=== PATIENT | female | born 1985 | race Caucasian/White ===

== ENCOUNTER 2022-05-16 07:57 | Outpatient (CLI) | payer OTHER, SELFPAY | END 2022-05-16 07:58 | disposition home or self-care (01) | PROVIDERS: Visit Provider Obstetrics & Gynecology | DX: Z87.59 Personal history of other complications of pregnancy, childbirth and the puerperium (principal) | CPT/HCPCS: 84702 ==

== ENCOUNTER 2022-05-18 14:38 | Outpatient (CLI) | payer OTHER, SELFPAY | END 2022-05-18 14:39 | disposition home or self-care (01) | PROVIDERS: Visit Provider Obstetrics & Gynecology | DX: O09.299 Supervision of pregnancy with other poor reproductive or obstetric history, unspecified trimester (principal) | CPT/HCPCS: 84702 ==

== ENCOUNTER 2022-05-21 16:33 | Outpatient (CLI) | payer OTHER, SELFPAY | END 2022-05-21 16:34 | disposition home or self-care (01) | PROVIDERS: Visit Provider Obstetrics & Gynecology | DX: Z87.59 Personal history of other complications of pregnancy, childbirth and the puerperium (principal) | CPT/HCPCS: 84702 ==

== ENCOUNTER 2022-06-22 12:11 | Outpatient (CLI) | payer OTHER, SELFPAY ==
--- NOTE | 2022-06-22 12:15 | CRLHL7_ITS ---
For Patients: As a result of the Century Cures Act, medical imaging exams and procedure reports are released immediately into your electronic medical record. You may view this report before your referring provider. If you have questions, please contact your health care provider. INDICATION: First trimester scan, establish dates. COMPARISON: None. TECHNIQUE: Real-time lang-scale imaging of the pelvis was performed. FINDINGS: Sonographic imaging demonstrates a single living intrauterine gestation. The embryo demonstrates a regular cardiac rate measuring 169 beats per minute. The embryo`s crown-rump length measurement of 2.8 cm corresponds to a gestational age of 9 weeks 4 days with a sonographic due date of 01/21/2023. Yolk sac is present measuring 5 millimeters. The yolk sac is somewhat ill-defined. There are no gross abnormalities noted within the embryo at this early state of development. The gestational sac has a normal appearance. There is a 13 x 6 x 12 millimeter perigestational hemorrhage. The amount of fluid within the sac appears appropriate for gestational age. The cervix is closed. The myometrium appears normal. The ovaries are of normal size. Simple right ovarian cyst is present measuring 2.3 cm. There are no suspicious fluid collections noted in the cul-de-sac. IMPRESSION: Single living intrauterine with sonographic gestational age 9 weeks 4 days and sonographic due date 01/21/2023. Subchorionic hemorrhage measuring 1.3 x 0.6 x 1.2 cm. Indistinctness of the yolk sac which measures 5 millimeters. Follow-up in 2 weeks suggested. Dictated by Jake Beckford MD @ 06/24/2022 9:32:56 AM (Electronically Signed)
== END 2022-06-22 12:12 | disposition home or self-care (01) ==
LOC: US 12:12
PROVIDERS: Visit Provider Registered Nurse
DX: Z34.91 Encounter for supervision of normal pregnancy, unspecified, first trimester (principal); Z3A.09 9 weeks gestation of pregnancy
CPT/HCPCS: 76817

== ENCOUNTER 2022-06-22 13:20 | Outpatient (CLI) | payer OTHER, SELFPAY ==
[2022-06-22 20:20] LABS: Chlamydia DNA Amplified* NOT DETECTED (No Detected); GC DNA Amplified* NOT DETECTED (No Detected)
== END 2022-06-22 13:21 | disposition home or self-care (01) ==
PROVIDERS: Visit Provider Registered Nurse
DX: Z34.91 Encounter for supervision of normal pregnancy, unspecified, first trimester (principal); O20.9 Hemorrhage in early pregnancy, unspecified; Z3A.09 9 weeks gestation of pregnancy
CPT/HCPCS: 82565; 82570; 84156; 84450; 84460; 84520; 84550; 86592; 86703; 86762; 86787; 86803; 86850; 86900; 86901; 87086; 87340; 87491; 87591

== ENCOUNTER 2022-06-29 09:34 | Outpatient (CLI) | payer OTHER, SELFPAY ==
[2022-06-29 12:59] LABS: Total Protein Urine 9 mg/dL
[2022-06-29 13:03] LABS: Creatinine Urine 69.2 mg/dL
[2022-06-29 14:10] LABS: Collection Time Urine 24 Hours; Total Volume 24 Hour Urine 2600 ml; Urine Creatinine mg/24 Hour 0 mg/Day
== END 2022-06-29 09:35 | disposition home or self-care (01) ==
LOC: FRMREF 09:36
PROVIDERS: Visit Provider Registered Nurse
DX: Z34.90 Encounter for supervision of normal pregnancy, unspecified, unspecified trimester (principal)
CPT/HCPCS: 82570; 84156

== ENCOUNTER 2022-07-06 08:15 | Outpatient (CLI) | payer OTHER, SELFPAY ==
--- NOTE | 2022-07-06 08:15 | CRLHL7_ITS ---
For Patients: As a result of the Cures Act, medical imaging exams and procedure reports are released immediately into your electronic medical record. You may view this report before your referring provider. If you have questions, please contact your health care provider. INDICATION: female. Follow up indistinctness of the yolk sac. TECHNIQUE: Transabdominal obstetrical ultrasound. COMPARISON: June 22, 2022. FINDINGS: Single living intrauterine with a crown-rump length of 5.2 cm corresponding to an 11 week 6 day gestation with a sonographic due date of January 19, 2023. heart rate 168 beats per minute. Posterior placenta. The yolk sac is not seen. Nonvisualization of the ovaries. IMPRESSION: Single living intrauterine with a crown-rump length corresponding to an 11 week 6 day gestation with a sonographic due date of January 19, 2023. heart rate 168 beats per minute. Nonvisualization of the yolk sac. Dictated by Yamil Cheek MD @ 07/06/2022 10:59:40 AM (Electronically Signed)
== END 2022-07-06 08:16 | disposition home or self-care (01) ==
PROVIDERS: Visit Provider Registered Nurse
DX: O41.8X10 Other specified disorders of amniotic fluid and membranes, first trimester, not applicable or unspecified (principal); Z3A.11 11 weeks gestation of pregnancy
CPT/HCPCS: 76801

== ENCOUNTER 2022-08-06 14:58 | Outpatient (CLI) | payer OTHER, SELFPAY | END 2022-08-06 14:59 | disposition home or self-care (01) | LOC: NFLDREF 15:00 | PROVIDERS: Visit Provider Obstetrics & Gynecology | DX: Z34.92 Encounter for supervision of normal pregnancy, unspecified, second trimester (principal); Z3A.16 16 weeks gestation of pregnancy | CPT/HCPCS: 81511 ==

== ENCOUNTER 2022-11-01 09:55 | Outpatient (CLI) | payer OTHER, SELFPAY | END 2022-11-01 09:56 | disposition home or self-care (01) | PROVIDERS: Visit Provider Registered Nurse | DX: Z34.93 Encounter for supervision of normal pregnancy, unspecified, third trimester (principal); Z3A.28 28 weeks gestation of pregnancy | CPT/HCPCS: 86592 ==

== ENCOUNTER 2022-11-08 08:08 | Outpatient (CLI) | payer OTHER, SELFPAY ==
--- NOTE | 2022-11-08 08:15 | CRLHL7_ITS ---
For Patients: As a result of the Century Cures Act, medical imaging exams and procedure reports are released immediately into your electronic medical record. You may view this report before your referring provider. If you have questions, please contact your health care provider. INDICATION: gestational diabetes, hx of macrosomia TECHNIQUE: Real time lang scale imaging of the fetus was performed . COMPARISON: 08/29/2022 FINDINGS: Sonographic imaging demonstrates a single living intrauterine gestation. Fetus demonstrates a regular cardiac rate of 126 beats per minute. Fetus has a vertex position. The placenta lies posterior. Amniotic fluid volume increase and there is a single deepest pocket of 6.2 cm. MARK 25.7 cm. The estimated weight is 2156gm which lies at the greater than 97th %. On the prior OB ultrasound dated 08/29/2022 the estimated weight was at the 94th percentile. BPD, HC, AC greater than 97th percentile. FL 63rd percentile. The fetus was active and demonstrated normal breathing movements. There was normal flexion and extension of the trunk and extremities. IMPRESSION: Normal biophysical profile score 8/8. Sonographic gestational age 33 weeks 0 days and sonographic due date 12/27/2022. Sonographic age is 24 days ahead of the clinical age. Estimated weight greater than 97th percentile. BPD/HC/AC greater than 97th percentile. Mild polyhydramnios. Dictated by Jake Beckford MD @ 11/08/2022 9:23:09 AM (Electronically Signed)
== END 2022-11-08 08:09 | disposition home or self-care (01) ==
LOC: US 08:09
PROVIDERS: Visit Provider Registered Nurse
DX: O24.419 Gestational diabetes mellitus in pregnancy, unspecified control (principal); O40.3XX0 Polyhydramnios, third trimester, not applicable or unspecified; Z3A.33 33 weeks gestation of pregnancy
CPT/HCPCS: 76816; 76819

== ENCOUNTER 2022-11-28 15:03 | Outpatient (CLI) | payer OTHER, SELFPAY ==
--- NOTE | 2022-11-28 15:00 | CRLHL7_ITS ---
For Patients: As a result of the Century Cures Act, medical imaging exams and procedure reports are released immediately into your electronic medical record. You may view this report before your referring provider. If you have questions, please contact your health care provider. OB ULTRASOUND 11/28/2022 INDICATION: GDM. Polyhydramnios. FINDINGS: Single. Position: Vertex. Cervix: Not visualized. MARK: 21.5 cm. Placenta: Fundal/Posterior, TA. Heart Rate: 125 bpm. BIOPHYSICAL PROFILE Total Score: 8/8. Gross Body Movements: 2. Tone: 2. Respiratory Activity: 2. Amniotic Fluid SDP: 2. Biometry: BPD: 9.0 cm. 36w, 2d, >97 percent. HC: 34.3 cm. 39w, 4d, >97 percent. AC: 34.23 cm. 38w, 1d, >97 percent. FL: 6.7 cm. 34w, 4d, 87 percent. FL/AC ratio: 20 percent. HC/AC ratio: 1.0. EFW: 3147 g. Weight: 6 lbs, 15 oz. age by this US: 37w, 1d. KARL by this US: 12/18/2022. Percentile by KARL: >97. IMPRESSION: Single live intrauterine gestation at 37 weeks 1 day. KARL of 12/18/2022. Estimated weight is 3147 g which lies at greater than the 97th percentile. Single deepest pocket is 5.9. MARK 21.54, previously it measured 25.7 cm. Antoinette Lares M.D. Diagnostic/Breast Radiologist [email or web address] / DW/Dictated by: Antoinette Lares MD @ 12/01/2022 9:24:00 AM (Electronically Signed)
== END 2022-11-28 15:04 | disposition home or self-care (01) ==
PROVIDERS: Visit Provider Obstetrics & Gynecology
DX: O40.3XX0 Polyhydramnios, third trimester, not applicable or unspecified (principal); O24.419 Gestational diabetes mellitus in pregnancy, unspecified control; Z3A.37 37 weeks gestation of pregnancy
CPT/HCPCS: 76816; 76819

== ENCOUNTER 2022-12-06 09:20 | Outpatient (CLI) | payer OTHER, SELFPAY ==
--- NOTE | 2022-12-06 09:15 | CRLHL7_ITS ---
For Patients: As a result of the Century Cures Act, medical imaging exams and procedure reports are released immediately into your electronic medical record. You may view this report before your referring provider. If you have questions, please contact your health care provider. INDICATION: GDM, AMA, polyhydramnios COMPARISON: 11/28/2022 TECHNIQUE: Real time lang scale imaging of the fetus was performed. Without non-stress testing. FINDINGS: Sonographic imaging demonstrates a single living intrauterine gestation. Fetus demonstrates a regular cardiac rate of 134 beats per minute. Fetus has a vertex position. The amniotic fluid volume appears normal and there is a single deepest pocket measurement of 6.5 cm. MARK 16.6 cm. The fetus was active and demonstrated normal breathing movements. There was normal flexion and extension of the trunk and extremities. IMPRESSION: Normal biophysical profile score of 8 out of 8. Normal amniotic fluid. Dictated by Jake Bcekford MD @ 12/06/2022 3:28:39 PM (Electronically Signed)
== END 2022-12-06 09:21 | disposition home or self-care (01) ==
PROVIDERS: Visit Provider Obstetrics & Gynecology
DX: O09.529 Supervision of elderly multigravida, unspecified trimester (principal); O40.9XX0 Polyhydramnios, unspecified trimester, not applicable or unspecified
CPT/HCPCS: 76816; 76819

== ENCOUNTER 2022-12-13 13:53 | Outpatient (CLI) | payer OTHER, SELFPAY ==
--- NOTE | 2022-12-13 14:00 | CRLHL7_ITS ---
For Patients: As a result of the Century Cures Act, medical imaging exams and procedure reports are released immediately into your electronic medical record. You may view this report before your referring provider. If you have questions, please contact your health care provider. OB ULTRASOUND FOLLOWUP LIMITED KARL by LMP: 01/20/2023. GA: 34 w, 4 d. Single. INDICATION: BPP and growth. Gestational diabetes mellitus. COMPARISON: 11/08/2022, 11/28/2022. CERVIX: Not visualized. POSITIONING: Vertex. AMNIOTIC FLUID: 19.0 cm. BIOPHYSICAL PROFILE: Total score: 8/8. Gross body movements: 2. tone: 2. Respiratory activity: 2. Amniotic fluid: 2. (SDP N: Increase 2 x 1 cm) PLACENTA: Technique: Transabdominal. PLACENTA POSITION: Fundal, posterior. DOPPLER: heart rate: 141 bpm. Biometry: BPD: 9.5 cm. 38 w, 5 d, >97 percent. HC: 35.2 cm. 41 w, 0 d, >97 percent. AC: 35.1 cm. 39 w, 0 d, >97 percent. FL: 6.9 cm. 35 w, 4 d, 70 percent. FL/AC ratio: 20 percent. HC/AC ratio: 1.0. EFW: 3492 g. Weight: 7 lbs, 11 oz. age by this US: 38 w, 4 d. KARL by this US: 12/23/2022. Percentile by KARL: >97 percent. IMPRESSION: Biophysical profile score 8/8. Single live intrauterine gestation at 38 weeks 4 days. KARL 12/23/2022. Estimated weight is 3492 grams which lies at greater than 97th percentile. Antoinette Lares M.D. Diagnostic/Breast Radiologist [email or web address] Transcribed: 9:38 am DW/Dictated by: Antoinette Lares MD @ 12/14/2022 7:03:00 AM (Electronically Signed)
== END 2022-12-13 13:54 | disposition home or self-care (01) ==
LOC: US 13:54
PROVIDERS: Visit Provider Obstetrics & Gynecology
DX: O24.419 Gestational diabetes mellitus in pregnancy, unspecified control (principal); Z3A.38 38 weeks gestation of pregnancy
CPT/HCPCS: 76816; 76819

== ENCOUNTER 2022-12-21 09:18 | Outpatient (CLI) | payer OTHER, SELFPAY ==
--- NOTE | 2022-12-21 09:15 | CRLHL7_ITS ---
For Patients: As a result of the Century Cures Act, medical imaging exams and procedure reports are released immediately into your electronic medical record. You may view this report before your referring provider. If you have questions, please contact your health care provider. INDICATION: Gestational diabetes COMPARISON: 12/13/2022 TECHNIQUE: Real time lang scale imaging of the fetus was performed. Without non-stress testing. FINDINGS: Sonographic imaging demonstrates a single living intrauterine gestation. Fetus demonstrates a regular cardiac rate of 139 beats per minute. Fetus has a vertex position. The amniotic fluid volume appears normal and there is a single deepest pocket measurement of 6.4 cm. The fetus was active and demonstrated normal breathing movements. There was normal flexion and extension of the trunk and extremities. IMPRESSION: Normal biophysical profile score of 8 out of 8. Dictated by Jake Beckford MD @ 12/21/2022 10:22:42 AM (Electronically Signed)
== END 2022-12-21 09:19 | disposition home or self-care (01) ==
LOC: US 09:19
PROVIDERS: Visit Provider Obstetrics & Gynecology
DX: O24.419 Gestational diabetes mellitus in pregnancy, unspecified control (principal)
CPT/HCPCS: 76819

== ENCOUNTER 2022-12-21 09:55 | Outpatient (CLI) | payer OTHER, SELFPAY | END 2022-12-21 09:56 | disposition home or self-care (01) | LOC: NFLDREF 12-25 13:25 | PROVIDERS: Visit Provider Obstetrics & Gynecology | DX: O24.419 Gestational diabetes mellitus in pregnancy, unspecified control (principal); O09.529 Supervision of elderly multigravida, unspecified trimester | CPT/HCPCS: 87081; 87653 ==

== ENCOUNTER 2022-12-26 13:30 | Outpatient (CLI) | payer OTHER, SELFPAY ==
--- NOTE | 2022-12-26 14:00 | CRLHL7_ITS ---
For Patients: As a result of the Cures Act, medical imaging exams and procedure reports are released immediately into your electronic medical record. You may view this report before your referring provider. If you have questions, please contact your health care provider. BIOPHYSICAL PROFILE 12/26/2022 KARL by LMP: 01/20/2023. AKRL by US: 01/20/2023. GA: 36 w, 3 d. Single. INDICATION: Gestational diabetes mellitus. CERVIX: Not visualized. POSITIONING: Vertex. AMNIOTIC FLUID: 7.9 cm. BIOPHYSICAL PROFILE: Total score: 8. Gross body movements: 2. tone: 2. Respiratory activity: 2. Amniotic fluid: 2. (SDP N: Increase 2 x 1 cm) PLACENTA: Technique: Transabdominal. PLACENTA POSITION: Fundal, posterior. DOPPLER: heart rate: 123 bpm. IMPRESSION: Biophysical profile score 8/8. Antoinette Lares M.D. Diagnostic/Breast Radiologist [email or web address] Transcribed: 8:51 am DW/Dictated by: Antoinette Lares MD @ 12/27/2022 6:53:00 AM (Electronically Signed)
== END 2022-12-26 13:31 | disposition home or self-care (01) ==
LOC: US 13:31
PROVIDERS: Visit Provider Obstetrics & Gynecology
DX: O09.523 Supervision of elderly multigravida, third trimester (principal); O24.419 Gestational diabetes mellitus in pregnancy, unspecified control; Z3A.36 36 weeks gestation of pregnancy
CPT/HCPCS: 76819

== ENCOUNTER 2023-01-03 07:26 | Outpatient (CLI) | payer OTHER, SELFPAY ==
--- NOTE | 2023-01-03 07:15 | CRLHL7_ITS ---
For Patients: As a result of the Century Cures Act, medical imaging exams and procedure reports are released immediately into your electronic medical record. You may view this report before your referring provider. If you have questions, please contact your health care provider. INDICATION: GESTATIONAL DIABETES TECHNIQUE: Real time lang scale imaging of the fetus was performed. COMPARISON: 12/26/2022 FINDINGS: Sonographic imaging demonstrates a single living intrauterine gestation. Fetus demonstrates a regular cardiac rate of 146 beats per minute. Fetus has a vertex position. The placenta lies fundal posterior. Amniotic fluid volume appears normal and there is a single deepest pocket of 6.0 cm. The estimated weight is 4459gm which lies at the greater than 97th %. On the prior OB ultrasound dated 12/13/2022 the estimated weight was at the greater than 97th percentile. BPD, HC, AC greater than 97th percentile. FL 62nd percentile. The fetus was active and demonstrated normal breathing movements. There was normal flexion and extension of the trunk and extremities. IMPRESSION: Normal biophysical profile score 8/8. Sonographic gestational age 39 weeks 3 days and sonographic due date 01/07/2023. Sonographic age is 13 days ahead of the clinical age. Estimated weight greater than 97th percentile. AC/HC/BPD greater than 97th percentile. Dictated by Jake Beckford MD @ 01/03/2023 10:03:12 AM (Electronically Signed)
== END 2023-01-03 07:27 | disposition home or self-care (01) ==
PROVIDERS: Visit Provider Obstetrics & Gynecology
DX: O24.419 Gestational diabetes mellitus in pregnancy, unspecified control (principal)
CPT/HCPCS: 76816; 76819

== ENCOUNTER 2023-01-11 05:21 | Inpatient (IN) | payer OTHER, SELFPAY ==
[2023-01-11] VITALS (33 sets, daily range): BP systolic 90–120; BP diastolic 49–80; PULSE 56–97; RESP 16; TEMP 36.4–36.8; O2SAT 96–100; BMI 40.4
[2023-01-11 06:01] LABS: Hemoglobin* 11.9 gm/dL (12.0-16.0)
[2023-01-11] MEDS: LACTATED RINGERS 1000 ML 1,000 ML 300 ML IV (06:02)
[2023-01-11] MEDS: SCOPOLAMINE 1 MG/3 DAY PATCH 1 PATCH TRANSDERMA (06:06)
[2023-01-11] MEDS: LACTATED RINGERS 1000 ML 1,000 ML 125 ML IV ×2 (07:02→10:01)
--- NOTE | 2023-01-11 07:08 | P.LDBA_ITS ---
Subjective History of Present Illness Time Seen by Provider: 07:05 Date Seen: 01/11/23 Narrative: Patient is being admitted to Labor and Delivery for repeat section and bilateral salpingectomy. She is a 37 year old at 38 5/7 weeks gestation. Her full history and physical was dictated by Dr. REYES on 12/26/22. Please see this for details. Specific Issues/Plans G 5 P 2021 H&P by CGM on 12/26/22 RLTCS+BS on 01/11/23, Dr. Brdaford 1. Advanced maternal age Maternity T21: normal, XY Recommend level 2 ultrasound: Normal anatomy 2. GDMA1 Early 1 hour glucose 20 weeks: 141. Declining 3hr GTT. Planning to check BS x1 week and call with values. ALL FASTING VALUES ELEVATED = GDM Met with pelt inspector on 11/08/22 Weekly BPP at 32 weeks due to suspected macrosomia Growth scan [id number] starting at 32 weeks -OBUS at 32 weeks: Estimated weight is 3147 g which lies at greater than the 97th percentile. Single deepest pocket is 5.9. MARK 21.54, previously it measured 25.7 cm. - OBUS 12/13/2022: BPD: More than the 97th percentile, HC: More than the 97th percentile, AC: More than the 97th percentile, FL: 70th percentile. EFW: 3492 g, more than the 97th percentile. Vertex presentation. MARK: 19.0. 3. History of chronic hypertension-No meds Baseline preeclampsia labs ordered: P/C ratio: 0.3*. 24 hour urine protein: 234mg/day Recommended daily baby aspirin starting at 12 weeks 4. History of in 2020. Patient planning a repeat with tubal ligation. * Notes difficult IV placement * Also specifically requests placement of Wilcox after spinal 5. History of macrosomia. Baby was 9 lb 1 oz in 2020 6. Obesity. BMI 36.9. 7. History of cervical dysplasia History of LGSIL, HGSIL, CATARINO 1, CATARINO 2-3. CATARINO 2-3 was in 2014, no treatment. Reverted to benign CATARINO 1 since then. Essentially abnormal Paps of various kinds since 2013. Pap September 2018: Normal Pap with positive HPV. Colposcopy September 2018: Benign. Pap 03/25/2020: Normal Pap with positive HPV. 12/08/2020: ASCUS negative HPV. 02/2021: Coposcopy: no biopsies. Pap performed 06/22/22: NIL / HPV negative 8. History of anxiety and depression. Currently doing well 9. History of hemorrhage 10. Sleep apnea. Cannot tolerate CPAP. Has a mouthpiece that she wears at night. 11. History of breast reduction. Plans to bottle feed. 12. Anemia (hgb 10.9) 11/05: rec. oral iron suppl. -repeat hemoglobin at 34 weeks: 11.9 13. History of coccygeal pain and stress incontinence. Referral to physical therapy placed 12/21/2022. Flu: completed Covid: completed and boosted. Planning bivalent booster. Tdap: 11/08/2022 OB - Problem Based A/P Additional Plan (1) History of delivery: Status: Acute (2) Family planning: Status: Acute Plan Repeat low transverse section, bilateral salpingectomy. GDMA1, needs FBS tomorrow am. CHTN, no medications needed this , monitor vital signs closely. OB Result Labs Labs: AM hemoglobin: 11.9mg/dL OB Exam Physical Exam Vital signs: Pulse BP 97 115/71 01/11/23 05:41 01/11/23 05:41 Detailed Labor and Delivery Exam Patient Gravid: Yes Tachysystole: No Fetus (Single) Amniotic Membrane Status: intact Heart Rate Baseline: 140 Monitor Accelerations: Present Monitor Decelerations: None Wincher Variability: Moderate (6-25)
[2023-01-11] MEDS: CEFAZOLIN 1 GM inj 3 GM IVP (07:30)
[2023-01-11] MEDS: LACTATED RINGERS 1000 ML 1,000 ML 100 ML IV (07:36)
--- NOTE | 2023-01-11 08:25 | W.ANESCHARGE ---
Anesthesia Charges Start Date/Time Anesthesia Start Date: 01/11/23 Anesthesia Start Time: 07:17 Stop Date/Time Anesthesia Stop Date: 01/11/23 Anesthesia Stop Time: 09:07
--- NOTE | 2023-01-11 08:40 | P.OBPRC_ITS ---
Procedure Date of procedure: 01/11/23 Pre-op diagnosis: section x1, GDMA1, CHTN, Family planning Post-op diagnosis: same Procedure Done: Global Will [facility] bill your pro fee for this procedure?: Yes Blood Loss Measurement Type: QBL (279mL) Bakri Used: No IV fluids (mL): 900 Urine Output (mL): 300 Surgeon: Leeanna Somers MD [employer] Printing: MERE Anesthesia type: Spinal Findings: FINDINGS: Live-born male , vertex presentation, Apgars 8 and 9 at 1 and 5 minutes respectively. weight 10 lb 1 oz. Left fimbria with thin adhesions to left ovary. Otherwise grossly normal bilateral ovaries and fall opian tubes. Procedure Name: Repeat Low Transverse Section, Bilateral Salpingectomy Procedure Description: PROCEDURE: After obtaining informed consent, the patient was taken to the operating room where spinal anesthesia was obtained and found to be adequate. She was prepared and draped in the normal sterile fashion in the dorsal supine position with a leftward tilt. A Pfannenstiel skin incision was made with a scalpel along the line of the patient's previous Pfannenstiel scar. This i ncision was carried down to the underlying layer of fascia with the scalpel and Bovie. The fascia was incised in the midline and the incision extended laterally. The superior aspect of the fascial incision was grasped with Shasha clamps, elevated and the underlying rectus muscles dissected off sharply and with curved Mcclelland scissors. The rectus muscles were then in the midline. The John O retractor was then placed into the incision. The lower uterine segment was then incised in a transverse fashion with the scalpel. Upon entry into the uterus, clear amniotic fluid was noted. The uterine incision was extended cephalo caudally with blunt finger fractionation. The infant's head was delivered atraumatically, followed by the remainder of the 's body. The nose and mouth were suctioned with the bulb suction. The cord was doubly clamped and cut, after 30 seconds of delayed cord clamping and the infant was handed off the field for evaluation. The placenta was delivered spontaneously with umbilical cord traction and fundal massage. The uterus was cleared of all clots and debris. The uterine incision was reapproximated in a running locking fashion with a 0 Vicryl suture. A 2nd layer of the same suture was used to imbricate in horizontal fashion. The right fallopian tube was then identified and followed up to fimbrial end, grasped with Sagrario and utilizing LigaSure handheld device the mesosalpinx was sequentially clamped, coagulated and cut down to cornual end. Hemostasis secured. The left fallopian tube was then identified, thin adhesions between fimbrial end and left ovary identified and released with LigaSure device, this did create a defect on the covering peritoneum that was seen to be bleeding and managed with Chromic 2-0 in a continuous interlocking fashion and hemostasis secured. This then allowed release of the left fimbrial end and salpingectomy completed on the left. Left fallopian tube was grasped with Sherwood and utilizing LigaSure handheld device the mesosalpinx was sequentially clamped, coagulated and cut down to cornual end. Hemostasis secured. Bilateral fallopian tubes were sent to pathology. The gutters were inspected and cleared of blood clots. All instruments and retractors were removed. The anterior peritoneum was reapproximated in a running fashion with a 3-0 Vicryl suture. The subfascial tissues were carefully inspected there were actively bleeding penetrating blood vessels seen at the right side and hemostasis assured with suture ligation utilizing Chromic 2-0 and electrocautery. Roger also placed due to small oozing vessels over muscles this allowed further hemostasis to be secured. The fascia was reapproximated in a running fashion with a looped 0 PDS suture. The subcutaneous tissues were copiously irrigated. Hemostasis was assured. The subcutaneous fat layer was reapproximated with interrupted sutures of 3-0 Vicryl. The skin was closed in a subcuticular fashion with 4-0 Monocryl. LiquiBand and dressing were applied. The patient tolerated the procedure well. Sponge, lap, needle, and instrument counts were reported as correct x2. The patient was taken to the recovery room, awake, and in stable condition. She did receive 3 grams of IV Ancef preoperatively, 1 g of TXA after cord clamp, due to overdistended uterus in the setting of suspected macrosomia and prevention of severe bleeding. Debrief completed after end of procedure. Complications: None Condition: stable Disposition: floor total score - 1 minute: 8 total score - 5 minute: 9 OB Delivery Proc Additional Procedures Tubal Ligation at the time of : Yes Other: No
--- NOTE | 2023-01-11 09:04 | SUR.OPER ---
fundal massage performed. small amount of drainage. uterus at belly button height and centered.
--- NOTE | 2023-01-11 09:11 | W.ANESCHARGE ---
Anesthesia Charges Start Date/Time Anesthesia Start Date: 01/11/23 Anesthesia Start Time: 07:17 Stop Date/Time Anesthesia Stop Date: 01/11/23 Anesthesia Stop Time: 09:07
--- NOTE | 2023-01-11 09:20 | P.NB_ITS ---
Nerve Block Nerve Block Time Seen by Provider: 08:57 Date Seen: 01/11/23 Type of block requested by surgeon for post-operative analgesia: TAP Side: bilateral Time out performed: Yes Verification of patient name: Yes Verification of date of : Yes Site marking: site marked Name of person performing procedure: Garret Continuous monitoring Was continuous monitoring of O2 sat, B/P, cardiac rehabilitation specialist, recorded every 15 minutes?: Yes Procedure Checklist: sterile prep, needles and gloves Ultrasound guided. Images saved: Yes Medications given in 5ml increments after negative aspiration: Marcaine %: 0.25 mL: 30 Needle gauge: 20 and Exparel mL: 10 Patient tolerated procedure well: Yes Additional comments: Needle noted adjacent to nerve Block Charges Block Charge (with Pro Fee): TAP Bilateral Use of Ultrasound Machine for Block: Yes- US Guidance/pain block
[2023-01-11] MEDS: DOCUSATE SODIUM 100 MG CAPSULE PO (10:11)
[2023-01-11] MEDS: ACETAMINOPHEN 500 MG TABLET 1000 MG PO ×3 (11:10→23:10)
[2023-01-11] MEDS: KETOROLAC 30 MG/ML inj IVP ×2 (13:54→19:55)
[2023-01-11] MEDS: ENOXAPARIN 40 MG/0.4 ML INJ SUBCUT (20:02)
[2023-01-12] VITALS (9 sets, daily range): BP systolic 103–115; BP diastolic 64–78; PULSE 63–77; RESP 16; TEMP 36.4–37.1; O2SAT 96–99
[2023-01-12] MEDS: KETOROLAC 30 MG/ML inj IVP ×3 (02:03→13:46)
[2023-01-12] MEDS: ACETAMINOPHEN 500 MG TABLET 1000 MG PO ×3 (05:00→18:25)
[2023-01-12] MEDS: DOCUSATE SODIUM 100 MG CAPSULE PO (08:00)
--- NOTE | 2023-01-12 09:02 | PM.OBPNVD1 ---
OB - PN:Subj Subjective Time Seen by Provider: 09:02 Date Seen: 01/12/23 Interval history: Ernedira is a 37-year-old seen on postop day 1 from a repeat delivery with bilateral salpingectomy. course was complicated by AMA, GDM A1, chronic hypertension, anemia. Her course has been uncomplicated present. Erendira sign 1 this morning, no acute concerns. She notes her pain is well controlled on NSAIDs and Tylenol alone. She notes good p.o. intake, no nausea or vomiting. Voiding spontaneously without difficulty. Lochia has been small to moderate. Ambulates without difficulty, no dizziness or lightheadedness. She is formula feeding, status post breast reduction. She understands methods to suppress engorgement, no concerns at this time. Baby Colten is doing very well. OB - PN: Obj Exam Physical Exam: Vital signs: Temp Pulse Resp BP Pulse Ox O2 Del Method 98.7 F 73 16 115/78 98 Room Air 01/12/23 07:43 01/12/23 07:43 01/12/23 07:43 01/12/23 07:43 01/12/23 07:43 01/12/23 07:43 Narrative: General: No acute distress Psych: Alert and oriented x 3, full affect HEENT: Normocephalic, atraumatic Abdomen: Normoactive bowel sounds, soft, no tenderness, rebound, or guarding, no masses, no hepatosplenomegaly, no hernias. Fundus 1 below U. Lower extremities: Trace pedal edema. No calf pain or erythema. Urinary Catheter Management: Urethral: Cath placed during this visit: yes, but has since been removed by the nurse Reason for continuing: decision to DC catheter Insertion date: 01/11/23 Insertion time: 07:32 Removal date: 01/11/23 Removal time: 18:15 OB - PN: A/P Delivery Assessment and Plan (1) History of delivery: Status: Acute (2) Family planning: Status: Acute Plan day: 1 Plan: routine care Comments: Erendira is seen on postop day 1 from repeat delivery with bilateral salpingectomy. She is doing very well with no concerns. Unremarkable rounding visit today. - Continue routine cares. - Pain control with NSAIDs and Tylenol, oxycodone as needed (none yet) - Formula feeding, understands methods to suppress engorgement if encountered - Vaginal bleeding is small to moderate, continue to monitor Disposition: Plan to discharge home tomorrow
[2023-01-12] MEDS: OXYCODONE 5 MG TABLET PO ×2 (18:25→22:31)
[2023-01-12] MEDS: IBUPROFEN 600 MG TABLET PO (19:51)
[2023-01-12] MEDS: ENOXAPARIN 40 MG/0.4 ML INJ SUBCUT (19:52)
[2023-01-13 00:24] VITALS: BP 107/62; PULSE 60; RESP 16; TEMP 36.4; O2SAT 97
[2023-01-13] MEDS: ACETAMINOPHEN 500 MG TABLET 1000 MG PO ×2 (00:29→06:39)
[2023-01-13] MEDS: IBUPROFEN 600 MG TABLET PO ×2 (02:05→08:13)
[2023-01-13] MEDS: OXYCODONE 5 MG TABLET PO ×2 (02:38→08:13)
[2023-01-13 08:08] VITALS: BP 120/88; PULSE 80; RESP 16; TEMP 36.9; O2SAT 100
[2023-01-13] MEDS: DOCUSATE SODIUM 100 MG CAPSULE PO (08:13)
--- NOTE | 2023-01-13 09:01 | PM.OBDSVD1 ---
DS: Providers Provider Time Seen by Provider: 09:01 Date Seen: 01/13/23 Date of admission: 01/11/23 05:21 Primary care physician: Not a Local Provider Admitting Clinician: Karely Somers MD Attending Physician on discharge: Carolynn Melton MD DS: Diagnosis Discharge Diagnosis (1) Family planning: Status: Acute (2) History of delivery: Status: Acute (3) Anemia: Status: Resolved (4) Gestational diabetes: Status: Acute (5) Advanced maternal age in multigravida: Status: Acute (6) Anxiety and depression: Status: Chronic (7) Sleep apnea: Status: Chronic Problem details: [id number]. Does not tolerate CPAP. (8) Obesity: Status: Chronic Exam Narrative: Exam Narrative: General: No acute distress Psych: Alert and oriented x 3, full affect HEENT: Normocephalic, atraumatic Abdomen: Normoactive bowel sounds, soft, no tenderness, rebound, or guarding. Fundus 2 below U. Incision is intact, well approximated and without erythema/drainage. Overlying surgical glue noted. Const: Vital Signs, click to edit/add: Vital Signs - 24 hr 01/12/23 16:32 01/12/23 19:21 01/13/23 00:24 Temperature 97.9 F 98.3 F 97.6 F Pulse Rate [Pulse Oximeter] 77 73 60 Respiratory Rate 16 16 16 Blood Pressure [Ri ght Arm] 114/74 103/70 107/62 Pulse Oximetry 99 97 97 Oxygen Delivery Me thod Room Air Room Air Room Air 01/13/23 08:08 Temperature 98.5 F Pulse Rate [Pulse Oximeter] 80 Respiratory Rate 16 Blood Pressure [Ri ght Arm] 120/88 Pulse Oximetry 100 Oxygen Delivery Me thod Room Air OB - DS: Summary Hospital Course Hospital Course: The patient is a 37 year old G 5 P 3 at 39 weeks gestation that was admitted to the Center on 01/11/23 for repeat delivery with bilateral salpingectomy. She had an uncomplicated delivery. She delivered a viable male infant. She is bottle feeding. the patient has done well. On rounds this morning, she reports no acute concerns. Pain is well controlled on NSAIDs, Tylenol and oxycodone p.r.n.. Appetite at baseline, no nausea vomiting. Voids without difficulty, passing gas and BM. Ambulates without difficulty, no dizziness or lightheadedness. Vital signs reviewed, within normal limits. Adequate urine output. Peripartum Data Procedures: Procedures Operation Date: 01/11/23 07:15 Actual Procedure Side Surgeon p Repeat Section, Tubal Ligation Karely Somers MD Gender: Male Time Spent with Patient Time attestation: Total time spent providing and/or coordinating discharge services: Discharge Plan Discharge Disposition: Home, Self-Care Date of Admission: 01/11/23 05:21 Attending Provider on Discharge: Sarah Melton Primary Care Provider: Provider,Not a Local Condition: Stable Anticipated Discharge Date/Time: 01/13/23 09:04 Discharge Medications: New oxycodone 5 mg Tablet 5 mg PO Q4H PRN (Reason: Pain) Qty: 10 0RF Continued DHA 200 mg capsule 200 mg PO DAILY ferrous sulfate 325 mg (65 mg iron) tablet 325 mg PO QDAY Qty: 90 1RF Discontinued (DME) blood-glucose meter [Blood Glucose Monitoring] Kit See Rx Instructions .Route Qty: 1 0RF Rx Instructions: As directed (DME) lancets [facility] [place] See Rx Instructions .Route Qty: 100 0RF Rx Instructions: qid (DME) Diabetic Test Strips [facility] [place] See Rx Instructions .Route Qty: 100 4RF Rx Instructions: qid Discharge Orders: Discharge Order (Routine); Ordered 01/13/23 Ordered By: Sarah Melton Patient Education: OB Over the Counter Medication Information, OB /Bottle Feeding Additional Instructions: Discharge instructions were reviewed with the patient including signs and symptoms of infection and home going medications Lifting Restrictions: 20 pounds for 6 weeks No not submerge incision under water X 2 weeks? Nothing vaginally for 6 weeks: no tampons or intercourse Do not drive while taking narcotic pain medication(s) Off Work or School for 8 weeks 2-week visit: incision check, discuss infant feeding concerns, review control options and screen for anxiety/depression. 6-week visit for an annual exam. consultation services are available to all mothers and babies for the first year after delivery.? To make an appointment, please call [phone]. Activity Level: Activity as Tolerated Activity Detail: Discharge Diet: Regular Follow Up Appointments: [facility] Instructions
== END 2023-01-13 11:40 | disposition home or self-care (01) | DRG 784 ==
PROVIDERS: Admitting Provider Obstetrics & Gynecology; Visit Provider Obstetrics & Gynecology
PROC: 10D00Z1 Extraction of Products of Conception, Low, Open Approach (ICD-10-PCS; CPT 59514; principal; 2023-01-11 07:15)
DX: O34.211 Maternal care for low transverse scar from previous cesarean delivery (principal); O10.92 Unspecified pre-existing hypertension complicating childbirth; Z30.2 Encounter for sterilization; O24.420 Gestational diabetes mellitus in childbirth, diet controlled; O99.02 Anemia complicating childbirth; G47.30 Sleep apnea, unspecified; O99.344 Other mental disorders complicating childbirth; F32.A Depression, unspecified; F41.9 Anxiety disorder, unspecified; O99.214 Obesity complicating childbirth; G89.18 Other acute postprocedural pain; Z3A.38 38 weeks gestation of pregnancy; D64.9 Anemia, unspecified; Z37.0 Single live birth
CPT/HCPCS: 01961; 36415; 64488; 76942; 80306; 82565; 82570; 82962; 84156; 84450; 84460; 84520; 84550; 85018; 85025; 85027; 85384; 85610; 85730; 86850; 86900; 86901; 88302; 88307; A9270; C9290; J0665; J0690; J1100; J1650; J1885; J2274; J2371; J2405; J2590; J7120

== ENCOUNTER 2023-01-17 10:01 | Outpatient (CLI) | payer OTHER, SELFPAY | END 2023-01-17 10:02 | disposition home or self-care (01) | LOC: NFLDREF 01-18 12:12 | PROVIDERS: Visit Provider Obstetrics & Gynecology | DX: R30.0 Dysuria (principal) | CPT/HCPCS: 87086 ==

== ENCOUNTER 2024-05-14 09:08 | Outpatient (CLI) | payer OTHER, SELFPAY ==
[2024-05-16 08:20] LABS: HPV Source Cervical/Vag; HPV, High Risk by TMA Not Detected
== END 2024-05-14 09:09 | disposition home or self-care (01) ==
PROVIDERS: Visit Provider Physician Assistant Medical
DX: N92.0 Excessive and frequent menstruation with regular cycle (principal); E66.9 Obesity, unspecified; D50.0 Iron deficiency anemia secondary to blood loss (chronic); I10 Essential (primary) hypertension; Z13.6 Encounter for screening for cardiovascular disorders; Z11.51 Encounter for screening for human papillomavirus (HPV); Z12.4 Encounter for screening for malignant neoplasm of cervix
CPT/HCPCS: 80053; 80061; 84443; 87624; 87625; 88141; 88142

== ENCOUNTER 2024-06-09 09:07 | Outpatient (CLI) | payer OTHER, SELFPAY | END 2024-06-09 09:08 | disposition home or self-care (01) | LOC: US 09:08 | PROVIDERS: PCP Physician Assistant Medical; Visit Provider Physician Assistant Medical | DX: N92.0 Excessive and frequent menstruation with regular cycle (principal); R93.89 Abnormal findings on diagnostic imaging of other specified body structures | CPT/HCPCS: 76830; 76856 ==